=== PATIENT | female | born 1945 | race Caucasian/White ===

== ENCOUNTER → 2020-09-19 | Outpatient (CLI) | payer MEDICARE ==
[2020-09-19 11:01] LABS: FREE T4 (FREE THYROXINE) 1.03 ng/dL (0.76-1.46)
== END | disposition home or self-care (01) ==
LOC: LAB 10:22
PROVIDERS: ATTEND Internal Medicine
DX: Z11.59 Encounter for screening for other viral diseases (principal); E03.8 Other specified hypothyroidism; R73.03 Prediabetes
CPT/HCPCS: 36415; 83036; 84439; 84443